=== PATIENT | female | born 1945 | race Caucasian/White ===

== ENCOUNTER 2022-09-10 19:11 | Emergency (ER) | payer MEDICARE, OTHER, SELFPAY ==
[2022-09-10 19:23] VITALS: BP 173/61; PULSE 77; RESP 18; TEMP 36.2; O2SAT 100; BMI 34.3
--- NOTE | 2022-09-10 20:53 | CRLHL7_ITS ---
For Patients: As a result of the Cures Act, medical imaging exams and procedure reports are released immediately into your electronic medical record. You may view this report before your referring provider. If you have questions, please contact your health care provider. Indication: Trauma. Technique: Right ankle 3 views. Comparison: None. Findings: Bones: Alignment is normal. No fractures or bone lesions. Diffuse demineralization of the visualized bones. Joint spaces: Mild diffuse degenerative changes. Ankle mortise is symmetric.. Soft tissues: Soft tissue swelling surrounding the ankle.. Impression: No acute fractures or dislocations. Soft tissue swelling surrounding the ankle. Dictated by Julien Hua MD @ 09/10/2022 9:44:46 PM (Electronically Signed)
[2022-09-10] MEDS: HYDROmorphone 0.5 mg/0.5 ml inj 1 MG IM (21:15)
[2022-09-10] MEDS: LORazepam 2 MG/ML inj 1 MG IM (21:15)
--- NOTE | 2022-09-10 22:30 | ED_ITS ---
HPI - General Adult General Chief complaint: Extremity Pain/Injury, Lower Stated complaint: Fall at noon, Pain getting worse Time Seen by Provider: 09/10/22 20:43 History of Present Illness HPI narrative: 69-year-old woman presenting to the emergency department complaint of right lower leg pain. Feels quite a tightness and spasming. Pretty severe pain. Had a stumble and fall event around noon and pain is only been escalating since then. Hurts terribly to walk. Maintains that it is not really her knee. Did not significantly hurt anything else. No chest back or abdominal pain. No loss of consciousness. She has also had for quite some time some some swelling and soreness at the posterior aspect of her heel. No known trauma. Accompanied by her daughters. Related Data Home Medications Medication Instructions Recorded Confirmed atorvastatin 40 mg tablet 40 mg PO QPM 09/10/22 09/15/22 cyclobenzaprine PO 09/12/22 09/15/22 ondansetron [Zofran ODT] PO 09/12/22 09/15/22 oxycodone-acetaminophen 5 mg-325 1 tab PO Q8H PRN 09/12/22 09/15/22 mg tablet (Percocet) Previous Rx's Medication Instructions Recorded Knee Scooter- Adult #1 ea 09/12/22 Allergies Allergy/AdvReac Type Severity Reaction Status Date / Time erythromycin base Allergy Verified 09/12/22 13:29 Review of Systems 2 Status of ROS: Reports: 6 or more systems reviewed and unremarkable except as noted in History and below [facility] Surgical History (Updated 09/12/22 @ 13:37 by Gianna Velázquez ~ [facility], [facility]) Skin cancer ?C44.90 - Unspecified malignant neoplasm of skin, unspecified (ICD-10) Bilateral carpal tunnel syndrome ?G56.03 - Carpal tunnel syndrome, bilateral upper limbs (ICD-10) Social History Smoking Status: Never smoker Non-prescribed substance use: denies use service: No Exam Narrative: Exam Narrative: She is seated with a gait belt on in the wheelchair with right leg somewhat extended in front of her. Has her pant leg roll up above her right knee. There is no abrasion or effusion about the right knee. Relative to the left leg I agree that her right lower leg is quite tense and full. As I begin to dorsiflex the right foot it sends her into spasms of pain. Describing a cramp in her leg in particular. There is a general puffiness to the foot though without pain here. She has a puffiness/edema around the lateral malleolus and also at the posterior aspect of the calcaneus. Later exam it appears that there might be a bit of a defect just above the calcaneus at the Achilles but I am not certain on this. Const: Vital Signs, click to edit/add: Vital Signs - 24 hr 09/10/22 19:23 Temperature 97.1 F L Pulse Rate [Right Pulse Oximeter] 77 Respiratory Rate 18 Blood Pressure [Ri ght Upper Arm] 173/61 H Pulse Oximetry 100 Oxygen Delivery Me thod Room Air Documenting provider has reviewed patient's vital signs: yes Course Vital Signs Vital signs: Initial Vital Signs Temperature 97.1 F L 09/10/22 19:23 Temperature Source Temporal Artery Scan 09/10/22 19:23 Pulse Rate 77 09/10/22 19:23 Respiratory Rate 18 09/10/22 19:23 Blood Pressure 173/61 H 09/10/22 19:23 Blood Pressure Mean 98 09/10/22 19:23 Blood Pressure Position Sitting 09/10/22 19:23 Pulse Oximetry 100 09/10/22 19:23 Oxygen Delivery Method Room Air 09/10/22 19:23 Vital Signs Temperature 97.1 F L 09/10/22 19:23 Pulse Rate 77 09/10/22 19:23 Respiratory Rate 18 09/10/22 19:23 Blood Pressure 173/61 H 09/10/22 19:23 Pulse Oximetry 100 09/10/22 19:23 Oxygen Delivery Method Room Air 09/10/22 19:23 Temperature 97.1 F L 09/10/22 19:23 Pulse Rate 70 09/11/22 00:00 Respiratory Rate 16 09/11/22 00:00 Blood Pressure 145/82 H 09/11/22 00:00 Pulse Oximetry 98 09/11/22 00:00 Oxygen Delivery Method Room Air 09/11/22 00:00 Medical Decision Making MDM Narrative Medical decision making narrative: If she was skeletally immature I would think this is somewhat of an apophysitis at the end of her heel. Unsure if there is some degree of a bursa here. Otherwise it does not appear that she actually sprained her ankle. I am concerned that she has partially disrupted her Achilles or at least to the calf musculature. Will image and then I suspect she will need to have a walking boot placed and then reassess at that point. Given the degree of pain would like to settle that down. Ordered for IM hydromorphone and lorazepam. This did seem to help on reassessment. X-ray ankle reviewed by me with some edema about the ankle and without acute bony abnormality. Seems that there is some enhancement of the posterior pad of the heel. Discussed pain management extensively and ultimately will reassess after cam Walker/walking boot placed. I did call to Orthopedics on-call. In agreement with plan and will follow-up after the weekend. See patient discharge plan Discharge Plan Discharge Clinical Impression: Heel pain, Strain of calf muscle, Achilles tendon pain Patient Disposition: Home w/ Parent or Adult Condition: Improved Additional Instructions: Wear the walking boot to try to protect yourself from excessive flexion and extension at the ankle. Hopefully this limits the degree of pain/spasms you have. Ice these sore areas 2-3 times daily over the next few days. Elevate for comfort. Might try pre treating your opiate with diphenhydramine to decrease nausea. Alternatively you have Zofran as well. Can take ibuprofen or up to 1000 mg of acetaminophen per dose for pain. Alternative to the ibuprofen might be naproxen. Each tablet of Percocet has 325 mg of acetaminophen in it. Expect a call from orthopedics probably Monday to arrange follow-up. If you do not hear from them by noon, go ahead and call them at [phone]. Percocet, cyclobenzaprine, Zofran from [facility]. Prescriptions: No Action oxycodone-acetaminophen [Percocet] 5-325 mg tablet 1 tab PO Q8H PRN cyclobenzaprine PO ondansetron [Zofran ODT] PO (DME) Knee Scooter- Adult Misc See Rx Instructions .Route Qty: 1 0RF Rx Instructions: As directed atorvastatin 40 mg tablet 40 mg PO QPM Follow Up/Referrals: Provider,Not a Local [Primary Care Provider] - Stand Alone Forms: [facility] Info Instructions
[2022-09-11] VITALS: BP 145/82; PULSE 70; RESP 16; O2SAT 98
== END 2022-09-11 00:09 | disposition home or self-care (01) ==
PROVIDERS: Emergency Provider Family Medicine
DX: S86.811A Strain of other muscle(s) and tendon(s) at lower leg level, right leg, initial encounter (principal)
CPT/HCPCS: 73610; 96372; 99283; 99284; J1170; J2060

== ENCOUNTER 2023-04-18 08:00 | Outpatient (RCR) | payer MEDICARE, OTHER, SELFPAY ==
--- NOTE | 2022-11-15 11:13 | PT.OPDN ---
PT [facility] Daily Note PT [facility] Daily Note Start: 09/28/22 07:58 Freq: Status: Active Protocol: Document 11/15/22 10:19 CJT (Rec: 11/15/22 11:13 CJT [id number]) E-signed By Félix Draper, PT PT OP Daily Progress Note Visit Information Note Type Recert/Progress Note Visit Number 9 Insurance Authorized Visits 99 Physician Authorized Visits eval and treat Insurance Information Recert Due Date 12/27/22 Insurance Name Medicare B Medical Diagnosis Achilles tendon pain, rupture Treating Diagnosis M25.571 - R ankle pain M79.604 - R leg pain Referring Richard Leach MD Subjective Subjective Pt did a lot of walking last Monday at [employer]. Had some Achilles pain and swelling following but this has resolved. Pts heel pain and lateral distal Achilles pain remains chief complaint. Precautions Weight Bearing Status Weight Bear as Tolerated Home Exercise Home Exercise Comments [id number] Objective Patient Instructed in Risks/Benefits Yes Therapeutic Exercise Therapeutic Exercise Minutes (minutes) 12 Therapeutic Exercise: To Restore Ankle PF AROM x 25 Functional Status Ankle DF AROM to neutral x 25 Ankle circles x 20 ea Happy Feet Exercises (foot intrinsics) 1. Lift only your big toes, while keeping smaller toes on the ground x 10 2. Lift only your little toes, while keeping your big toes on the ground x 10 3. Spread all toes apart as far as you can without moving your feet and place on the ground x 10 4. Without curling your toes, lift the arch of your foot x 10 Manual Therapy Techniques Manual Therapy Minutes (minutes) 30 Manual Therapy Techniques STM to R gastroc, soleus, achilles tendon, plantar surface of R foot, tibialis anterior to reduce tissue tension and improve extensibility. Treatment Minutes Timed Code Treatment Minutes 42 Total Treatment Time 42 Billing Units Manual Therapy Units 1 Therapeutic Exercise Units 2 Assessment/Impression Assessment/Impression Pt is now 9 weeks post-injury and rehab has been going well. Pts top complaint is discomfort from use of her CAM boot. Today we removed the final heel wedge and she does note some tightness in the Achilles with ambulation today . Pts heel has also been bothersome in standing and I have encouraged her to place one of her insoles into her boot for some extra cushioning . Next week we will begin stretching and strengthening of pts plantarflexors to restore appropriate strength and ROM. I do anticipate that we will reduce frequency to 1/ week when Melissa feels comfortable with her home exercise program. Recommend continued PT services to address deficits and return pt to highest level of function. Plan of Care Physical Therapy Goals STG - To be completed in 2-3 weeks: 1. Pt will report consistent adherence to PWB restrictions of R LE to help facilitate healing and reduce risk of complete rupture of Achilles tendon. MET 2. Pt will report consistent use of ice and elevation of R Achilles tendon to help reduce inflammation, swelling, and pain. MET LTG - To be completed in 12+ weeks: 1. Pt will be I with HEP so that she may I manage progression of symptoms. 2. Pt will demo R ankle DF to neutral with max 2/10 discomfort to show improved ankle AROM and reduction in gastroc tightness for ease of ambulation. 3. Pt will ambulate 500 ft without AD and minimal gait deviations so that she may returns to walking for exercise with her . Daily Plan of Care Continue per POC
--- NOTE | 2022-12-22 09:29 | PT.OPDN ---
PT [facility] Daily Note [facility] Daily Note Start: 09/28/22 07:58 Freq: Status: Active Protocol: Document 12/22/22 08:45 CJT (Rec: 12/22/22 09:28 CJT [id number]) E-signed By Félix Draper, PT PT OP Daily Progress Note Visit Information Note Type Recert/Progress Note Visit Number 17 Insurance Authorized Visits 99 Physician Authorized Visits eval and treat Insurance Information Recert Due Date 03/22/23 Insurance Name Medicare B Medical Diagnosis Achilles tendon pain, rupture Treating Diagnosis M25.571 - R ankle pain M79.604 - R leg pain Referring Richard Leach MD Subjective Subjective Pt doing well. Was very sore the night of her last session as she was busy afterwards and walked quite a bit that night . Feeling better today. Precautions Weight Bearing Status Weight Bear as Tolerated Home Exercise Home Exercise Comments [id number] Objective Other/Pertinent Objective R ankle PF/DF/DF: Patient Instructed in Risks/Benefits Yes Therapeutic Exercise Therapeutic Exercise Minutes (minutes) 18 Therapeutic Exercise: To Restore Bike - 6 minutes Functional Status Ankle DF/PF on rocker board x 30 (full range) Gastroc stretch on slant board 2 x 90 Heel raises 2 x 10 (full range ) Manual Therapy Techniques Manual Therapy Minutes (minutes) 22 Manual Therapy Techniques STM to L gastroc, soleus, Achilles tendon, peroneals to reduce tissue tension and improve extensibility. Active release of gastroc, soleus, Achilles tendon to further reduce tissue tension. Treatment Minutes Timed Code Treatment Minutes 40 Total Treatment Time 40 Billing Units Manual Therapy Units 2 Therapeutic Exercise Units 1 Assessment/Impression Assessment/Impression Melissa has continued to progress very well during her time in therapy. Her R ankle DF measures 5 degrees with knee bent and 4 degrees with knee extended this date. She has been having minimal pain and soreness. When her Achilles tendon gets sore it is usually from excessive walking or standing for extended periods. She is now completing heel raises from level ground and while she feels her R calf is weak, she does not have pain with this exercise. We will continue to progress her strength and stretching exercises as appropriate. Recommend continued PT services to address deficits and return pt to highest level of function. Plan of Care Physical Therapy Goals STG - To be completed in 2-3 weeks: 1. Pt will report consistent adherence to PWB restrictions of R LE to help facilitate healing and reduce risk of complete rupture of Achilles tendon. MET 2. Pt will report consistent use of ice and elevation of R Achilles tendon to help reduce inflammation, swelling, and pain. MET LTG - To be completed in 12+ weeks: 1. Pt will be I with HEP so that she may I manage progression of symptoms. 2. Pt will demo R ankle DF to neutral with max 2/10 discomfort to show improved ankle AROM and reduction in gastroc tightness for ease of ambulation. MET 3. Pt will ambulate 500 ft without AD and minimal gait deviations so that she may returns to walking for exercise with her . Daily Plan of Care Continue per POC
--- NOTE | 2023-02-28 10:58 | PT.OPDN ---
PT [facility] Daily Note PT [facility] Daily Note Start: 09/28/22 07:58 Freq: Status: Active Protocol: Document 02/28/23 08:28 CJT (Rec: 02/28/23 10:57 CJT [id number]) E-signed By Félix Draper, PT PT OP Daily Progress Note Visit Information Note Type Recert/Progress Note Visit Number 26 Insurance Authorized Visits 99 Physician Authorized Visits eval and treat Insurance Information Recert Due Date 03/22/23 Insurance Name Medicare B Medical Diagnosis Achilles tendon pain, rupture Treating Diagnosis M25.571 - R ankle pain M79.604 - R leg pain Referring Richard Leach MD Subjective Subjective Pt doing well. Still recuperating from Thanksgiving last week. Was very busy cooking/cleaning/hosting and hasn't been doing her HEP. Was sore for two days after last session and notes she has trouble walking she was so sore. Precautions Weight Bearing Status Weight Bear as Tolerated Home Exercise Home Exercise Comments [id number] Objective Other/Pertinent Objective R ankle PF: 55 R ankle DF/DF: 10/5 R ankle IV: 21 R ankle EV: 22 L ankle PF: 56 L ankle DF/DF: 9/2 L ankle IV: 11 L ankle EV: 24 Strength R ankle DF: 5/5 MMT R ankle PF: 5/5 MMT - unable to perform SL heel raise R ankle IV: 5/5 MMT R ankle EV: 5/5 MMT Patient Instructed in Risks/Benefits Yes Therapeutic Exercise Therapeutic Exercise Minutes (minutes) 8 Therapeutic Exercise: To Restore Bike - 8 minutes Functional Status Gait & Stair Training Gait Training/Stairs Minutes (minutes) 10 Gait & Stair Training Comments Ambulation with FWW - pt ambulates approx 350 ft with use of FWW and VC for heel strike at initial contact. Pt exhibits Trendelenburg gait on L, also reports pain in R anterior thigh while ambulating Self Care Management Training Self-Care Activity Minutes (minutes) 6 Self Care Management Training KT tape applied to R LE: plantar surface of R foot to gastroc muscle belly Tape placement aimed to assist gently with R ankle PF motions to reduce strain on Achilles tendon. Other Interventions Provided Other Interventions Provided Ultrasound - 8 minutes, continuous, 2MHz, 1.2 W/cm^2; beam directed at posterolateral calcaneus and distal Achilles tendon 15 minute set up and treatment time Other Interventions Untimed Minutes 15 Treatment Minutes Untimed Code Treatment Minutes 15 Timed Code Treatment Minutes 24 Total Treatment Time 39 Billing Units Gait Training/Stairs Units 1 Therapeutic Exercise Units 1 Ultrasound Units 1 Assessment/Impression Assessment/Impression Melissa has continued to progress slowly during her time in therapy. Her R ankle ROM is WNL and equal to that of her L ankle. While her ankle strength measures 5/5 MMT for all motions bilaterally, she is still unable to perform a single leg heel raise on her R , however, she is only able to complete 1 repetition on her L. Melissa's strength deficits remain a top concern for her rehabilitation as well as new case of what seems to be Achilles tendonitis. This pain is not debilitating for Melissa and she often describes it as a constant dull ache. We have since reduced her exercise volume to allow this tendon to heal and have also utilized ice massage, taping, and ultrasound treatment to reduce inflammation and pain in this region. While Melissa has been progressing slowly but consistently, she often struggles to see this and is concerned that she is not making progress. I have continued to assure her that she is improving and we can see the improvement that she has made by reviewing her old therapy notes to see her objective measures and general function. Melissa still has a ways to go in her rehabilitation for this injury but I would imagine she will be ready for discahrge in the next 1-2 months. Recommend continued therapy sessions to address deficits and return pt to highest level of function. Plan of Care Physical Therapy Goals STG - To be completed in 2-3 weeks: 1. Pt will report consistent adherence to PWB restrictions of R LE to help facilitate healing and reduce risk of complete rupture of Achilles tendon. MET 2. Pt will report consistent use of ice and elevation of R Achilles tendon to help reduce inflammation, swelling, and pain. MET LTG - To be completed in 12+ weeks: 1. Pt will be I with HEP so that she may I manage progression of symptoms. 2. Pt will demo R ankle DF to neutral with max 2/10 discomfort to show improved ankle AROM and reduction in gastroc tightness for ease of ambulation. MET 3. Pt will ambulate 500 ft without AD and minimal gait deviations so that she may returns to walking for exercise with her . Daily Plan of Care Continue per POC
== END 2023-08-16 23:59 | disposition home or self-care (01) ==
PROVIDERS: Visit Provider Orthopaedic Surgery
DX: S86.019A Strain of unspecified Achilles tendon, initial encounter (principal); M76.60 Achilles tendinitis, unspecified leg; Z51.89 Encounter for other specified aftercare
CPT/HCPCS: 97035; 97110; 97116; 97140; 97161; 97535

== ENCOUNTER 2023-09-12 08:45 | Outpatient (RCR) | payer MEDICARE, OTHER, SELFPAY | END 2023-11-09 13:57 | disposition home or self-care (01) | PROVIDERS: Visit Provider Family Medicine | DX: M54.41 Lumbago with sciatica, right side (principal); Z51.89 Encounter for other specified aftercare; G89.29 Other chronic pain; R42 Dizziness and giddiness | CPT/HCPCS: 97110; 97112; 97140; 97161; 97162 ==